=== PATIENT | female | born 1955 | race African-American/Black ===

== ENCOUNTER 2021-10-19 11:15 | Outpatient (CLI) | payer OTHER, SELFPAY ==
--- NOTE | ~2021-10-19 | US_ITS ---
EXAMINATION: US venous doppler LE RT DATE: 10/19/2021 12:02 INDICATION: Right lower limb pain and swelling. TECHNIQUE: Grayscale ultrasound images without and with compression and Doppler ultrasound images of the right lower extremity veins were obtained. COMPARISON: None. FINDINGS: The visualized portions of right common femoral vein, profunda (deep) femoral vein, femoral vein, pop liteal vein, peroneal veins, posterior tibial veins, and greater saphenous vein outflow are patent. IMPRESSION: 1. No deep venous thrombosis. Reviewed, dictated and finalized at location A.
== END 2021-10-19 11:16 | disposition home or self-care (01) ==
PROVIDERS: PCP Internal Medicine; Visit Provider Podiatrist Foot & Ankle Surgery
DX: R22.41 Localized swelling, mass and lump, right lower limb (principal)
CPT/HCPCS: 93971

== ENCOUNTER 2021-11-08 12:41 | Emergency (ER) | payer OTHER, SELFPAY ==
--- NOTE | ~2021-11-08 | US_ITS ---
EXAMINATION: US pelvic complete DATE: 11/08/2021 16:51 INDICATION: Abnormal uterine bleeding TECHNIQUE: Multiple transabdominal sonographic images of the pelvis were obtained. COMPARISON: None. FINDINGS: The uterus measures 11.4 x 6.0 x 4.7 cm. The endometrial complex measures 17 mm in thickness. The bi lateral ovaries are not visualized. There is no free fluid in the pelvis. IMPRESSION: 1. Endometrial complex is markedly thickened at 17 mm for postmenopausal state which raises concern f or either endometrial hyperplasia or malignancy. Recommend hysteroscopy for further evaluation. Reviewed, dictated and finalized at location A. IMPRESSION: 1. Endometrial complex is markedly thickened at 17 mm for postmenopausal state which raises concern for either endometrial hyperplasia or malignancy. Recommen d hysteroscopy for further evaluation.
[2021-11-08 13:04] VITALS: BP 159/112; PULSE 80; RESP 16; TEMP 36.8; O2SAT 100
--- NOTE | 2021-11-08 16:11 | ED.FEMALEGU ---
HPI - Female Genitourinary General Chief complaint: Vaginal Bleeding Stated complaint: lower abd cramps and vag bleeding Time Seen by Provider: 11/08/21 16:02 History of Present Illness HPI Narrative: Patient is a 66-year-old G3, P3 female here for evaluation of vaginal bleeding. Patient states that she has not bled through about 2 menstrual pads per day over the past week. She went into menopause about 15 years ago and has not bled since. She did have a cervical biopsy at the beginning of June for abnormal cells seen on her Pap, which reportedly came back negative. She did have spotting ever since that procedure, but notes that her bleeding has increased in severity over the past week. She also notes a lower abdominal cramping that she describes as a menstrual cramp. Denies fevers, chills, dysuria, urgency, frequency. She follows with an OB at [facility] but she is no longer in practice. Related Data Home Medications Medication Instructions Recorded Confirmed aspirin 81 mg tablet,delayed 81 mg PO DAILY 11/27/20 06/07/21 release cholecalciferol (vitamin D3) 1,250 1,250 mcg PO WEEKLY 11/27/20 06/07/21 mcg (50,000 unit) capsule multivit with 1 tablet PO DAILY 11/27/20 06/07/21 rrwomnvw-brpt-BX-lutein 8 mg iron-400 mcg-300 mcg tablet (Centrum Silver Women) Allergies Allergy/AdvReac Type Severity Reaction Status Date / Time No Known Allergies Allergy Verified 06/07/21 10:54 Review of Systems Review of Systems: Gen: Denies fevers or chills Eyes: Denies eye pain or visual change ENT: Denies congestion Respiratory: Denies shortness of breath or cough CV: Denies chest pain or palpitations GI: Denies abdominal pain nausea, emesis or diarrhea : denies burning, urgency, frequency or hematuria Musculoskeletal: Denies back pain or muscle pain Neuro: Denies numbness, tingling, weakness or focal weakness Skin: Denies rash Except as documented, all other systems reviewed and negative [facility] Past Medical History Medical History Hypertension Family History Family History Mother Hypertension Social History Social History Second hand tobacco smoke exposure: Yes Alcohol intake: never Substance use: never Exam Narrative: APPEARANCE: Well appearing, no pain in distress, well-nourished. Head: Normocephalic and atraumatic. EYES: PERRLA/EOMI, conjunctivae clear NOSE: No nasal drainage EARS: External ear normal in appearance THROAT: Oropharynx is clear. Mucous membranes are moist. NECK: Supple. No adenopathy, no masses. RESPIRATORY: Airway patent, respirations nonlabored. Clear to auscultation bilaterally, no rales, rhonchi, wheezing. CARDIOVASCULAR: Regular rate and rhythm without murmurs, rubs, or gallops. ABDOMINAL: Normoactive bowel sounds. Soft, nontender, nondistended. No rebound tenderness or guarding. : exam performed with pillowcase turner khari, scant amount of blood noted in vault, no brisk bleeding, no retained FB/polyp MUSCULOSKELETAL: Extremities are warm and well-perfused. Moves all extremities well. No edema. NEURO: Normal speech. No focal neurologic deficits. SKIN: Skin is warm and dry. No rashes. PSYCHIATRIC: Normal affect/mood. Course Consultations Consultation #1: Spoke with Dr. Nguyen, [facility], will see in office this following week for follow-up and possibly biopsy Date: 11/08/21 Time: 18:37 Vital Signs Vital signs: Vital Signs Temperature 98.2 F 11/08/21 13:04 Pulse Rate 80 11/08/21 13:04 Respiratory Rate 16 11/08/21 13:04 Blood Pressure 159/112 H 11/08/21 13:04 Pulse Oximetry 100 11/08/21 13:04 Oxygen Delivery Autopap 11/08/21 13:04 Temperature 98.2 F 11/08/21 13:04 Pulse Rate 80 11/08/21 13:04 Respiratory Rate 16 11/08/21 13:04 Blood Pressure 159/112 H
[2021-11-08] MEDS: IBUPROFEN 600 MG TABLET PO (16:50)
[2021-11-08 17:03] LABS: Basophils Percent Auto 0.5 % (0.2-1.2); Eosinophils Absolute Auto 0.2 K/mm3 (0-0.3); Hematocrit 44.4 % (37.0-47.0); Hemoglobin 14.6 g/dL (12.0-15.0); Immature Granulocyte Absolute 0.01 K/mm3 (0.00-0.031); Immature Granulocyte Percent A 0.1 % (0-0.5); Lymphocytes Absolute Auto 3.05 K/mm3 (0.9-3.2); Lymphocytes Percent Auto 40.1 % (18.3-44.2); Mean Corpuscular HGB Conc 32.9 g/dl (32-36); Mean Corpuscular Hemoglobin 31.9 pg (26-34); Mean Corpuscular Volume 97.2 fl (80-100); Mean Platelet Volume 9.3 fl (7.4-10.4); Monocytes Absolute Auto 0.5 K/mm3 (0.1-0.6); Monocytes Percent Auto 6.3 % (2.6-8.5); Neutrophils Absolute Auto 3.9 K/mm3 (1.3-6.7); Platelet Count Result 277 k/mm3 (150-375); Red Blood Count 4.57 M/mm3 (4.2-5.4); Red Cell Distribution Width 14.1 % (11.5-14.5); White Blood Count 7.6 K/mm3 (4.5-10.0)
[2021-11-08 17:14] LABS: Alanine Aminotransferase 33 U/L (6-35); Albumin Level 4.4 g/dL (3.5-5.1); Alkaline Phosphatase 96 U/L (38-126); Anion Gap 11 mmol/L (8-16); Aspartate Amino Transferase 36 U/L (14-36); Bilirubin,Total 0.5 mg/dL (0.2-1.3); Blood Urea Nitrogen 9 mg/dL (7-17); Calcium 9.4 mg/dL (8.4-10.2); Carbon Dioxide 28 mmol/L (22-30); Chloride 103 mmol/L (98-107); Estimated CRCL calculation 62 ml/min; Estimated Glomerular Filt Rate > 60; Glucose 93 mg/dL (65-110); Potassium 3.9 mmol/L (3.4-5.0); Sodium 142 mmol/L (137-145)
[2021-11-08 17:17] LABS: Prothrombin Time 13.2 Seconds (11.1-14.7)
[2021-11-08 17:18] LABS: Partial Thromboplastin Time 28.7 SECONDS (22.3-36.8)
== END 2021-11-08 19:10 | disposition home or self-care (01) ==
PROVIDERS: Physician Assistant; Emergency Provider Emergency Medicine; PCP Internal Medicine
DX: N93.8 Other specified abnormal uterine and vaginal bleeding (principal); I10 Essential (primary) hypertension; Z79.82 Long term (current) use of aspirin
CPT/HCPCS: 36415; 76856; 80053; 81025; 85025; 85610; 85730; 99284; A9270

== ENCOUNTER → 2022-06-21 15:48 | Outpatient (CLI) | payer OTHER, SELFPAY ==
--- NOTE | ~2022-06-21 | MR_ITS ---
EXAMINATION: MR knee RT wo con DATE: 06/21/2022 16:26 INDICATION: Right knee pain TECHNIQUE: Magnetic resonance imaging (MRI) of the right knee was performed without intravenous contr ast. Sequences included coronal PD-weighted FSE, coronal PD-weighted FS FSE, sagittal T2-weighted FS E, sagittal PD-weighted FS FSE and axial PD weighted fat saturated FSE. COMPARISON: None. FINDINGS: Medial compartment: Medial meniscus is normal. There is a band of deep chondral ulceration/fissuring without degenerative subchondral changes measuring 1.5 cm AP and up to 5 mm medial to lateral which extends along the ant erior to central weightbearing medial femoral condyle. Normal cartilage along the medial tibial plate au. Small to moderate size marginal osteophytes are present. Lateral compartment: Complex tear with linear increased signal extending to the intra-articular surface and free edge of t he posterior horn of the lateral meniscus and extending across the meniscus near the posterior root. Additional more amorphous increased signal at the inner third of the body of the lateral meniscus. De ep chondral fissuring at the anterior to central weightbearing lateral femoral condyle with underlyin g very small central subchondral osteophyte. There is additional deep fissuring without degenerative subchondral changes at the central aspect of the lateral tibial plateau. Small to moderate size gloria nal osteophytes are present. Patellofemoral compartment: Extensive deep chondral ulceration at the lateral patellar facet with suggestion of remodeling of the articular cortex and with small amount of edema-like signal change along side the apical ridge. Juan tional deep chondral ulceration with some early remodeling of the articular cortex at the lateral erika e of the lateral patellar facet. Fissuring at the trochlear groove and medial trochlea. Large multipl e osteophyte along the lateral side of the lateral patellar facet with additional small to moderate s ize marginal osteophytes along the trochlea and medial patellar facet. Ligaments and tendons: Anterior and posterior cruciate ligaments are normal. The fibular collateral ligament complex is norm al. There is mild thickening of the proximal medial collateral ligament likely mild scarring related to chronic sprain with no surrounding edema to suggest acute injury. The patella tendon is normal. Mi ld distal quadriceps tendinopathy without tear. The visualized medial and lateral hamstring tendons a s well as the iliotibial band are normal. Fluid: Minimal joint effusion at the suprapatellar pouch. No loose osteochondral bodies identified. Osseous/other: Bone alignment is normal. No fracture or pathologic marrow replacing process. IMPRESSION: 1. Complex lateral meniscal tear. 2. 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 3. Mild distal quadriceps tendinopathy without tear. 4. Suggestion mild scarring related to chronic sprain of the medial collateral ligament. Reviewed, dictated and finalized at location A. IMPRESSION: 1. Complex lateral meniscal tear. 2. Tricompartmental osteoarthritis, moderate to severe with high-grade chondrom alacia at the lateral side of the patellofemoral compartment and mild with mode rate and high-grade chondral malacia in the lateral compartment and moderate gr chrissy chondral malacia in the medial compartment. 3. Mild distal quadriceps tendinopathy without tear. 4. Suggestion mild scarring related to chronic sprain of the medial collateral ligament.
== END ==
PROVIDERS: Visit Provider Nurse Practitioner Family
DX: S83.281A Other tear of lateral meniscus, current injury, right knee, initial encounter (principal); M17.11 Unilateral primary osteoarthritis, right knee; M94.261 Chondromalacia, right knee; X58.XXXA Exposure to other specified factors, initial encounter
CPT/HCPCS: 73721

== ENCOUNTER 2022-08-01 11:30 | Outpatient (CLI) | payer OTHER, MEDICARE, SELFPAY ==
--- NOTE | ~2022-08-01 | DEXA_ITS ---
Bone Density Report Name: KWAME ENGEL Age: 66 Sex: Female Ethnicity: Black Date of : 1955 Indication: postmenopausal; screening for osteoporosis; cancer; Referring Provider: TIFFANIE ATKINSON Study: Bone densitometry was performed. Exam Date: August 01, 2022 Accession number: [id number] Bone Density: Region BMD T-score Z-score Classification AP Spine(L1-L4) 1.233 1.7 2.8 Normal Femoral Neck (Left) 1.087 2.1 2.3 Normal Total Hip (Left) 1.277 2.7 2.6 Normal Femoral Neck (Right) 1.090 2.2 2.3 Normal Total Hip (Right) 1.215 2.2 2.2 Normal Total Hip Mean 1.246 2.5 2.4 Normal World Health Organization criteria for BMD impression classify patients as: Normal (T-score at or above -1.0), Osteopenia (T-score between -1.0 and -2.5), or Osteoporosis (T-score at or below -2.5). 10-year Fracture Risk: FRAX not reported because: All T-scores for Spine Total, Hip Total, Femoral Neck at or above -1.0 Clinical Information Provided by Patient: Has the following medical conditions: Cancer Patient maximum height was 60 Menopause Age: 65 Onset of menses at age 13 Number of children 3 Impression: The patient has normal bone mass. Discussion: LOW RISK OF FRACTURE; BONE DENSITY IS WELL ABOVE THE MINIMUM DESIRABLE LEVEL AND ABOVE AVERAGE FOR AGE AND SEX AT ALL SKELETAL SITES TESTED. This person's bone density is above expected limits for age and sex. This is rarely clinically significant, but should be pursued if there are significant musculoskeletal complaints. The patient should follow a healthful lifestyle (good nutrition with adequate calcium and vitamin D, and appropriate weight-bearing exercise). Follow-Up: Consider repeating this study in 5 years or sooner if there is some new clinical indication. Reported by: [facility] on 08/01/2022 11:59:00 AM. Reviewed, dictated and finalized at location AAlexia HAMLIN
== END 2022-08-01 11:31 | disposition home or self-care (01) ==
PROVIDERS: PCP Family Medicine; Visit Provider Family Medicine
DX: Z78.0 Asymptomatic menopausal state (principal)
CPT/HCPCS: 77080

== ENCOUNTER 2023-06-18 10:30 | Outpatient (CLI) | payer MEDICARE, OTHER, SELFPAY ==
[2023-06-18 11:20] LABS: Hematocrit 43.7 % (37.0-47.0); Hemoglobin 14.4 g/dL (12.0-15.0); Mean Corpuscular Hemoglobin 31.3 pg (26-34); Mean Platelet Volume 9.7 fl (7.4-10.4); Platelet Count Result 276 k/mm3 (150-375); Red Cell Distribution Width 14.5 % (11.5-14.5); White Blood Count 4.2 K/mm3 (4.5-10.0)
[2023-06-18 11:33] LABS: Alanine Aminotransferase 36 U/L (6-35); Albumin Level 4.2 g/dL (3.5-5.1); Alkaline Phosphatase 89 U/L (38-126); Anion Gap 5 mmol/L (4-12); Aspartate Amino Transferase 32 U/L (14-36); Bilirubin,Total 0.6 mg/dL (0.2-1.3); Blood Urea Nitrogen 12 mg/dL (7-17); Calcium 9.4 mg/dL (8.4-10.2); Carbon Dioxide 31 mmol/L (22-30); Chloride 107 mmol/L (98-107); Cholesterol 158 mg/dL (0-200); Estimated Glomerular Filt Rate > 60; Glucose 107 mg/dL (65-110); HDL Direct 49 mg/dL; Potassium 3.6 mmol/L (3.4-5.0); Sodium 143 mmol/L (137-145); Triglycerides 68 mg/dL (<150)
[2023-06-18 11:44] LABS: LDL Cholesterol Direct 78 mg/dL
[2023-06-18 12:26] LABS: Vitamin D 25 Hydroxy 31.7 ng/mL
== END 2023-06-18 10:31 | disposition home or self-care (01) ==
LOC: ANHLAB 10:39
PROVIDERS: PCP Family Medicine; Visit Provider Family Medicine
DX: E55.9 Vitamin D deficiency, unspecified (principal); E78.5 Hyperlipidemia, unspecified; I10 Essential (primary) hypertension; I87.2 Venous insufficiency (chronic) (peripheral); E66.01 Morbid (severe) obesity due to excess calories; Z85.3 Personal history of malignant neoplasm of breast
CPT/HCPCS: 36415; 80053; 80061; 82306; 85027

== ENCOUNTER 2023-12-25 08:38 | Outpatient (CLI) | payer MEDICARE, OTHER, SELFPAY ==
[2023-12-25 09:12] LABS: Hemoglobin 15.9 g/dL (12.0-15.0); Mean Corpuscular HGB Conc 33.8 g/dl (32-36); Mean Corpuscular Hemoglobin 32.8 pg (26-34); Mean Corpuscular Volume 96.9 fl (80-100); Mean Platelet Volume 9.5 fl (7.4-10.4); Platelet Count Result 257 k/mm3 (150-375); Red Blood Count 4.85 M/mm3 (4.2-5.4); Red Cell Distribution Width 14.6 % (11.5-14.5); White Blood Count 4.4 K/mm3 (4.5-10.0)
[2023-12-25 09:25] LABS: Alanine Aminotransferase 51 U/L (6-35); Albumin Level 4.4 g/dL (3.5-5.1); Alkaline Phosphatase 98 U/L (38-126); Anion Gap 6 mmol/L (4-12); Aspartate Amino Transferase 43 U/L (14-36); Bilirubin,Total 0.7 mg/dL (0.2-1.3); Blood Urea Nitrogen 12 mg/dL (7-17); Calcium 9.4 mg/dL (8.4-10.2); Carbon Dioxide 32 mmol/L (22-30); Chloride 103 mmol/L (98-107); Cholesterol 168 mg/dL (0-200); Estimated Glomerular Filt Rate 60; Glucose 109 mg/dL (65-110); HDL Direct 49 mg/dL; Potassium 3.8 mmol/L (3.4-5.0); Sodium 141 mmol/L (137-145); Triglycerides 74 mg/dL (<150)
[2023-12-25 09:36] LABS: LDL Cholesterol Direct 70 mg/dL
== END 2023-12-25 08:39 | disposition home or self-care (01) ==
PROVIDERS: PCP Family Medicine; Visit Provider Family Medicine
DX: Z00.00 Encounter for general adult medical examination without abnormal findings (principal); E55.9 Vitamin D deficiency, unspecified; E78.5 Hyperlipidemia, unspecified; I10 Essential (primary) hypertension; I87.2 Venous insufficiency (chronic) (peripheral); E66.01 Morbid (severe) obesity due to excess calories; Z85.3 Personal history of malignant neoplasm of breast
CPT/HCPCS: 36415; 80053; 80061; 82306; 85027

== ENCOUNTER 2024-01-08 09:53 | Outpatient (CLI) | payer MEDICARE, OTHER, SELFPAY ==
--- NOTE | ~2024-01-08 | US_ITS ---
Limited ABDOMINAL ULTRASOUND Ordering provider: Amos Chatterjee MD History: . R74.8 - Abnormal levels of other serum enzymes . Comparison: None. FINDINGS: LIVER: Normal size and echotexture. No focal hepatic lesions or perihepatic fluid collections are monae ntified. Normal flow of the portal vein. GALLBLADDER: Unremarkable. No evidence for stones, sludge, gallbladder wall thickening or pericholecy stic fluid collections. The wall thickness is 1.2 mm. A negative sonographic Solorzano's sign was noted. BILIARY DUCTS: No evidence for intra or extrahepatic biliary dilation. Common bile duct measures 5.4 mm in diameter which is within normal limits. PANCREAS: Normal echotexture and size. UPPER ABDOMINAL AORTA: Normal in caliber. IVC: Patent. FREE FLUID: None. IMPRESSION: Unremarkable limited ultrasound of the abdomen. Reviewed, dictated and finalized at location A.
[2024-01-08 12:36] LABS: Hepatitis B Surface Antigen Negative (Negative)
[2024-01-08 12:41] LABS: HAV RESULT Negative (Negative); Hepatitis B Core IgM Result Negative (Negative)
[2024-01-08 12:53] LABS: Hepatitis C Virus Antibody Negative (Negative)
== END 2024-01-08 09:54 | disposition home or self-care (01) ==
PROVIDERS: PCP Family Medicine; Visit Provider Family Medicine
DX: R74.01 Elevation of levels of liver transaminase levels (principal); R74.8 Abnormal levels of other serum enzymes
CPT/HCPCS: 36415; 76705; 80074

== ENCOUNTER 2025-01-06 10:16 | Outpatient (CLI) | payer MEDICARE, SELFPAY ==
--- OUTSIDE RECORDS SUMMARY | 2025-01-06 11:18 | XMS_ITS | Clinical Summary ---
Author Organization [facility] Address [address] [place] [id number] Care Team Providers Care Improvement Spec Name Role Phone Unavailable Primary Care Provider Unavailabl e Social History Tobacco Use Types Packs/Day Years Used Date Smoking Tobacco: Never Assessed Comments Unknown Sex and Gender Information Value Date Recorded Sex Assigned at Not on file Legal Sex Female 4:27 PM CDT Gender Identity Not on file Sexual Orientation Not on file Plan of Treatment Health Maintenance Due Date Last Done Comments Colorectal Cancer Screening Colonoscopy (10 Years) 1955 Hepatitis C 1974 DTaP, Tdap and Td Vaccines (1 - Tdap) 08/06/1975 Pneumococcal Vaccine: 50+ Years (1 of 1 - PCV) 2006 Zoster Vaccines (2 of 3) 05/02/2017 017, 12/05/2016, 08/22/2016, Additional history exists Dexa Scan (General) 2021 COVID-19 Vaccine (2 - season) 2024 06/07/2020 Mammogram Screening 11/04/2026 11/04/2024 RSV Immunization or 60+ Years (1 - 1-dose 75+ series) 08/06/2031 Influenza Adult Completed 12/17/2024, 11/08, 12/15/2019, Additional history exists Hepatitis A Vaccines Aged Out No long er eligible based on patient's age to complete this topic Meningococcal B Vaccine Aged Out No l onger eligible based on patient's age to complete this topic Meningococcal Vaccine Aged Out No [place] angela eligible based on patient's age to complete this topic RSV Immunizations Under 20 Months Aged Out No longer eligible based on patient's age to complete this topic
--- OUTSIDE RECORDS SUMMARY | 2025-01-06 11:18 | XMS_ITS | Patient Health Record ---
Author Organization [facility] Address [address] [place], [place] [id number] Care Team Providers Care Shop Hand Name Role Phone ARIC MCCORMICK Unavailable [phone] Reason For Referral No Information Social History Social History Additional Details Category Social Info Options Details Migrated Social History Migrated Social History Smoking Status : Never used tobacco , History of tobacco use : Plan Of Treatment No Information Insurance Providers Payer Name Payer Address Payer Phone Subscriber Number Group Number Insured Name Patient Relationship to Insured Coverage Start Date Coverage End Date [employer] [address] [place], [place] [phone] [id number] KWAME ENGEL Self - patient is the insured
--- OUTSIDE RECORDS SUMMARY | 2025-01-06 11:19 | XMS_ITS | Clinical Summary ---
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 Gender Identity Not on file Sexual Orientation Not on file Plan of Treatment Health Maintenance Due Date Last Done Comments Hepatitis C Virus (HCV) Screening 1955 TdaP Immunization 1955 Cologuard 2001 Colonoscopy 2001 Colorectal Cancer Screening 2001 Immunochemical Fecal Occult Blood 2001 Pneumococcal Immunization (5 0+ years) (1 of 1 - PCV) 2006 Zoster Immunization (1 of 2) 2006 Influenza Immunization (#1) 2024 12/15/2019 SARS-COV-2 Immunization (1 - season) 2024 Respiratory Syncytial Virus (RSV) Immunization (Adult) (1 - 1-dose 75+ series) 08/06/2031 Hepatitis B Immunization Aged Out No longer eligible based on patient's age to complete this topic Human Papillomavirus (HPV) Immunization Aged Out No longer eligible b ased on patient's age to complete this topic Meningococcal Immunization (ACWY) Aged Out No longer eligible based on patient's age to complete this topic Rotavirus Immunization Aged Out No lo nger eligible based on patient's age to complete this topic
--- OUTSIDE RECORDS SUMMARY | 2025-01-06 11:19 | XMS_ITS | Clinical Summary ---
Author Organization [facility] Address [address] [place] [address] Care Team Providers Care Automatic Lathe Operator Name Role Phone Iker Michelle MD Unavailable [phone] Isael Corona MD Unavailable [phone] Amos Chatterjee MD Primary Care Provider [phone] Gladys Harrison NP Unavailable [phone] More Reyes MD Unavailable [phone] Allergies No known active allergies Medications amlodipine-ator vastatin (CADUET) 5-10 mg per tablet Take 1 tablet by mouth daily PATIENT STATED SHE WAS NO LONGER TAKING THIS MEDICATION BUT APON LOOKING AT THE BOTTLE REALIZED SHE IS STILL TAKING THIS MEDICATION Active metoprolol XL (TOPROL-XL) 50 mg 24 hr tablet metoprolol succinate ER 50 mg tablet,extended release 24 hr TAKE 1 TABLET EVERY DAY Active losartan (COZAAR) 100 mg tablet Take 1 tablet (100 mg total) by mouth daily 0 Active folic acid/multivit-m in/lutein (CENTRUM SILVER ORAL) Take 1 tablet by mouth daily Active ergocalciferol (VITAMIN D) 50,000 unit capsuleIndicati ons:Vitamin D deficiency Take 1 capsule (50,000 Units total) by mouth once a week 12 capsule 3 5 04/02/19 26 Active Active Problems Problem Noted Date Diagnosed Date Malignant neoplasm of upper- outer quadrant of right breast in female, estrogen receptor negative 07/18/2017 Cancer Staging:Clinical stage from 09/04/2017:Stage IIB(cT1b, cN1(sn), cM0, G3, ER: Negative, NC: Negative, HER2: Negative) - Signed by Wes Baez DO on 09/04/2017 Encounters Date Type Department Care Team Description 12/20/2024 Results Follow-Up Health system Medicine Physicians [facility] Oncology [address] [place] [address] [address] [place] [address] Shireen Eller, CUCO Vitamin D 25 hydroxy, Comprehensive metabolic panel, CBC with auto differential, Additional followed-up results: 3 12/17/2024 11:30 AM CDT Office Visit Health system Medicine Physicians [facility] On[facility] [address] [place] [address] [address] [place] [address] Gladys Harrison, CASSIA Malignant neoplasm of upper-outer quadrant of right breast in female, estrogen receptor negative (HCC) (Primary Dx); Encounter for screening mammogram for breast cancer; Vitamin D deficiency; Malignant neoplasm of upper-outer quadrant of left breast in female, estrogen receptor positive (HCC); Triple negative breast cancer (HCC); Screening mammogram for breast cancer; Need for immunization against influenza 12/17/2024 10:20 AM CDT [facility] at [address] [id number] Vitamin D deficiency; Malignant neoplasm of upper-outer quadrant of left breast in female, estrogen receptor positive (HCC); Malignant neoplasm of upper-outer quadrant of right breast in female, estrogen receptor negative (HCC) 11/04/2024 12:40 PM CDT - 11/04/2024 11:59 PM CDT Hospital Encounter [facility] Medical Office Bl 1 Breast [facility] [address] [facility] [address] [place], [place] [id number] Screening mammogram, encounter for Discharge Disposition: Discharge to home or self care 11/04/2024 Results Follow-Up Health system Medicine Physicians [facility] On[facility] [address] [place] [address] [address] [place] [address] Cristel Dominguez RN Screening Mammogram Bilateral W Federico from Last 3 Months Immunizations Immunization Administration Dates Next Due Influenza, Trivalent, Preser vative Free, Intramuscular 12/17/2024 Influenza, Unspecified 11/23/2020,2019,01/08/2018,03/07,03/01/2016 Pfizer SARS-CoV-2 Monovalent Vaccination (12+ Yrs) PURPLE 06/07/2020 ZOSTER LIVE 03/07/2017, 7,08/22/2016,06/27,05/30/2016,05/16/2016,04/18/2016 ,03/28/2016,03/01/2016 Surgical History Surgery Date Site/Laterality Comments COLONOSCOPY BREAST BIOPSY BREAST BIOPSY 02/21/2016 Right BREAST LUMPECTOMY 03/10/2015 - 03/09/2016 Right SECTION 1976. 1988. 1980. TUBAL LIGATION Medical History Medical History Date Comments Breast cancer (HCC) History of radiation therapy 2015 History of chemotherapy 2015 PONV (postoperative nausea and vomiting) Motion sickness Hypertension High cholesterol Post-menopausal bleeding Social History Tobacco Use Types Packs/Day Years Used Date Smoking Tobacco: Never Smokeless Tobacco: Never Alcohol Use Standard Drinks/Week Comments Never 0 (1 standard drink = 0.6 oz pur e alcohol) AUDIT-C Answer Date Recorded Q1: How often do you have a drink containing alcohol? Never 12/17/2024 Q2: How many drinks containi ng alcohol do you have on a typical day when you are drinking? Patient does not drink Q3: How often do you have si x or more drinks on one occasion? 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 Gender Identity Not on file Sexual Orientation Not on file Obstetrics History Para Term AB IAB SAB Ectopic Multiple Livin g Live Births 3 3 3 Date Outcome GA Total Labor Labor/2nd/3rd Weight Sex Type Anes PTL Lucie A1 A5 Name Clin Term Term Term Last Filed Vital Signs Vital Sign Reading Time Taken Comments Blood Pressure 142/77 12/17/2024 10:30 AM CDT Pulse 81 12/17/2024 10:30 AM CDT Temperature 36.9 C (98.4 F) 12/17/2024 10:30 AM CDT Respiratory Rate 18 12/17/2024 10:30 AM CDT Oxygen Saturation 97% 12/17/2024 10:30 AM CDT Inhaled Oxygen Concentration - - Weight 102.4 kg (225 lb 12 oz) 12/17/2024 10:30 AM CDT no shoes Height 152 cm (4' 11.84) 12/17/2024 10:30 AM CD T no shoes Body Mass Index 44.32 12/17/2024 10:30 AM CDT Plan of Treatment Health Maintenance Due Date Last Done Comments Depression Screening 1955 Fall Risk Assessment 1955 Hepatitis C Screening 1955 Osteoporosis Screening-Bone Density Scan 1955 DTaP/Tdap/Td Vaccine (1 - Tdap) 08/06/1967 Hepatitis B Screening 1974 Pneumococcal vaccine 65+ (1 of 1 - PCV) 2006 Zoster Vaccine (2 of 3) 05/02/2017 03/07/20 17, 12/05/2016, 08/22/2016, Additional history exists Well Visit 65+ 2021 Covid-19 Vaccine (2 - 2024-2 6 season) 2024 06/07/2020 Breast Cancer Screening-Mammogram 11/04/2025 11/04/2024, 10/09/2023, 10/03/2022, Additional history exists Colon Cancer Screening-Colonoscopy 06/13/2027 06/12/2017 Colon Cancer Screening-CT Colonography Discontinued 06/12/2017 Colon Cancer Screening-DNA Stool Discontinued 06/13/19 18 Colon Cancer Screening-FIT Discontinued 06/12/2017 Colon Cancer Screening-Sigmoidoscopy Discontinued 06/12/2017 Influenza Vaccine Completed 12/17/2024, , 12/15/2019, Additional history exists Procedures Procedure Name Priority Date/Time Associated Diagnosis Comments CANCER ANTIGEN 15-3 Routine 12/17/2024 1 0:21 AM CDT Malignant neoplasm of upper-outer quadrant of right breast in female, estrogen receptor negative (HCC) EGFR Routine 12/17/2024 10:21 AM CDT Vitamin D deficiency Malignant neoplasm of upper-outer quadrant of left breast in female, estrogen receptor positive (HCC) DIFFERENTIAL AUTO Routine 12/17/2024 10: 21 AM CDT Vitamin D deficiency Malignant neoplasm of upper-outer quadrant of left breast in female, estrogen receptor positive (HCC) CBC WITH AUTO DIFFERENTIAL Routine 12/17/2024 10:21 AM CDT Vitamin D deficiency Malignant neoplasm of upper-outer quadrant of left breast in female, estrogen receptor positive (HCC) COMPREHENSIVE METABOLIC PANEL Routine 12/17/2024 10:21 AM CDT Vitamin D deficiency Malignant neoplasm of upper-outer quadrant of left breast in female, estrogen receptor positive (HCC) VITAMIN D 25 HYDROXY Routine 12/17/2024 10:21 AM CDT Vitamin D deficiency Malignant neoplasm of upper-outer quadrant of left breast in female, estrogen receptor positive (HCC) SCREENING MAMMOGRAM BILATERAL W FEDERICO Schedule Routine, Read Routine (OP Routine) 11/04/2024 1:07 PM CDT Screening mammogram, encounter for COLONOSCOPY Routine 06/12/2017 8:29 AM CDT from Last 3 Months or Most Recently Relevant to Health Maintenance Results * eGFR (12/17/2024 10:21 AM CDT) eGFR 61 >=60 mL/min/1. 73 m2 Comment: Interpretive Data Reference Interval Normal >/= 90 mL/min/1.73m2 Mildly decreased* 60 - 89 mL/min/1.73m2 Mildly to moderately decreased 45 - 59 mL/min/1.73m2 Moderately to severely decreased 30 - 44 mL/min/1.73m2 Severely decreased 15 - 29 mL/min/1.73m2 Kidney Failure < 15 mL/min/1.73m2 *Relative to young adult level Estimated glomerular filtration rate is determined by the 2020 CKD-EPI equation recommended by the National Kidney Foundation (A Unifying Approach to GFR Estimation: Recommendations of the NKF-ASK Task Force on Reassessing the Inclusion of Race in Diagnosing Kidney Disease, JASN 2020). The CKD-EPI equation should not be used for patients with unstable renal function and has not been validated in children and those over 70. Current interpretive data was last reviewed 2021. Testing performed by: [address] [address] Blood 12/17/2024 10:2 1 AM CDT 12/17/2024 10:23 AM CDT Gladys Harrison RESEARCH LAB ASSISTANT LAB BLOOD ORDERABLES Final Result [facility] [address] [facility] Department [place] [address] * Differential, auto (12/17/2024 10:21 AM CDT) Neutrophil abs 2.50 1.50 - 6.50 K/cumm Comment:Testing performed by : [address] [address] Imm gran abs 0.05 0.00 - 0.10 K/cumm AKASH Comment:Testing performed by : [address] [address] Lymphocyte abs 2.38 0.80 - 3.30 K/cumm AKASH Comment:Testing performed by : [address] [address] Monocyte abs 0.37 0.20 - 0.80 K/cumm AKASH Comment:Testing performed by : [address] [address] Eosinophil abs 0.12 0.00 - 0.50 K/cumm AKASH Comment:Testing performed by : [address] [address] Basophil abs 0.04 0.00 - 0.10 K/cumm AKASH Comment:Testing performed by : [address] [address] Neutrophil pct 45.8 % AKASH Comment: Interpretive Data Percent cell count reference ranges are not reported, since discordance with absolute values may lead to misinterpretation of CBC data. Current Interpretive Data was last revised on 2017. Testing performed by: [address] [address] Imm gran pct 0.9 % [facility] Comment: Interpretive Data Percent cell count reference ranges are not reported, since discordance with absolute values may lead to misinterpretation of CBC data. Current Interpretive Data was last revised on 2017. Testing performed by: [address] [address] Lymphocyte pct 43.6 % [facility] Comment: Interpretive Data Percent cell count reference ranges are not reported, since discordance with absolute values may lead to misinterpretation of CBC data. Current Interpretive Data was last revised on 2017. Testing performed by: [address] [address] Monocyte pct 6.8 % [facility] Comment: Interpretive Data Percent cell count reference ranges are not reported, since discordance with absolute values may lead to misinterpretation of CBC data. Current Interpretive Data was last revised on 2017. Testing performed by: [address] [address] Eosinophil pct 2.2 % [facility] Comment: Interpretive Data Percent cell count reference ranges are not reported, since discordance with absolute values may lead to misinterpretation of CBC data. Current Interpretive Data was last revised on 2017. Testing performed by: [address] [address] Basophil pct 0.7 % [facility] Comment: Interpretive Data Percent cell count reference ranges are not reported, since discordance with absolute values may lead to misinterpretation of CBC data. Current Interpretive Data was last revised on 2017. Testing performed by: [address] [address] Blood 12/17/2024 10:2 1 AM CDT 12/17/2024 10:23 AM CDT Gladys Harrison RESEARCH LAB ASSISTANT LAB BLOOD ORDERABLES Final Result [facility] [address] [facility] Department [place] [address] * CBC with auto differential (12/17/2024 10:21 AM CDT) [facility] WBC 5.46 3.80 - 9.90 K/cumm Comment:Testing performed by : [address], [address] Hgb 14.1 11.9 - 15.5 g/dL AKASH Comment:Testing performed by : [address], [address] Hct 41.5 35.6 - 45.5 % AKASH Comment:Testing performed by : [address], [address] Plt 262 150 - 400 K/cumm AKASH Comment:Testing performed by : [address], [address] MPV 9.2 9.1 - 12.3 fL AKASH Comment:Testing performed by : [address], [address] RBC 4.53 3.90 - 5.20 M/cumm AKASH Comment:Testing performed by : [address], [address] MCV 91.6 81.3 - 96.4 fL AKASH Comment:Testing performed by : [address], [address] MCH 31.1 27.1 - 33.3 pg AKASH Comment:Testing performed by : [address], [address] MCHC 34.0 32.3 - 35.7 g/dL AKASH Comment:Testing performed by : [address], [address] RDW CV 14.0 11.1 - 14.9 % AKASH Comment:Testing performed by : [address], [address] RDW SD 47.8 35.7 - 48.1 fL AKASH Comment:Testing performed by : [address], [address] NRBC abs 0.00 0.00 - 0.01 K/cumm AKASH Comment:Testing performed by : [address], [address] ANC Prelim 2.50 1.50 - 6.50 K/cumm [facility] Comment: Interpretive Data The rapid ANC is a preliminary automated count and may vary from the final ANC (Neut Abs) reported in the WBC differential that follows. Current interpretive data was last revised 2024. Testing performed by: [address] [address] Blood 12/17/2024 10:2 1 AM CDT 12/17/2024 10:23 AM CDT Gladys Harrison NP LAB BLOOD ORDERABLES Final Result Performing Organization Address [facility] Co de Phone Number [facility] [address] [facility] [place] [address] * (ABNORMAL) Cancer antigen 15-3 (12/17/2024 10:21 AM CDT) Pathologist [facility] [place] 15-3 ag 31.1(H) 0.0 - 25.0 units/mL Comment: Interpretive Data The [employer] CA 15-3 assay procedure was used. Results from different manufacturers or methods may not be comparable. Serial testing should be performed using the same method. Testing performed by: [address] [address] Blood 12/17/2024 10:2 1 AM CDT 12/17/2024 11:25 AM CDT Gladys Harrison NP LAB BLOOD ORDERABLES Final Result Performing Organization Address City/[facility] Co de Phone Number [address] [place] [address] * Vitamin D 25 hydroxy (12/17/2024 10:21 AM CDT) [facility] Vitamin D 25-OH 57.0 30.0 - 80.0 ng/mL Blood 12/17/2024 10:2 1 AM CDT 12/17/2024 4:43 PM CDT Gladys Harrison RESEARCH LAB ASSISTANT LAB BLOOD ORDERABLES Final Result [facility] [address] [facility] Department [place] [address] * Comprehensive metabolic panel (12/17/2024 10:21 AM CDT) Sodium 143 135 - 145 mmol/L Comment:Testing performed by : [address] [address] Potassium, pl 3.9 3.3 - 4.9 mmol/L AKASH Comment:Testing performed by : [address] [address] Chloride 105 97 - 110 mmol/L AKASH Comment:Testing performed by : [address] [address] CO2 27 22 - 32 mmol/L AKASH Comment:Testing performed by : [address] [address] Anion gap 11 2 - 15 mmol/L AKASH Comment:Testing performed by : [address] [address] BUN 9 6 - 25 mg/dL AKASH Comment:Testing performed by : [address] [address] Creatinine 1.00 0.60 - 1.10 mg/dL AKASH Comment:Testing performed by : [address] [address] Glucose 110 70 - 199 mg/dL AKASH Comment: Interpretive Data Fasting glucose >/= 126 mg/dl is diagnostic for diabetes. Fasting is defined as no caloric intake for at least 8 hours. Fasting glucose between 100 mg/dl to 125 mg/dl is diagnostic of prediabetes. In a patient with classic symptoms of hyperglycemia or hyperglycemic crisis, a random glucose >/= 200 mg/dl is diagnostic for diabetes. In the absence of unequivocal hyperglycemia, results should be confirmed by repeat testing. The classification and Diagnosis of Diabetes Diabetes Care 202; 46: S19-S40. Current interpretive data was last revised 2022. Testing performed by: [address] [address] Calcium 9.2 8.5 - 10.3 mg/dL AKASH Comment:Testing performed by : [address] [address] Bilirubin, total 0.5 0.1 - 1.2 mg/dL AKASH Comment:Testing performed by : [address] [address] Protein, pl 7.6 6.5 - 8.5 g/dL AKASH Comment:Testing performed by : [address] [address] Albumin 4.0 3.5 - 5.0 g/dL AKASH Comment:Testing performed by : [address] [address] Alk phos 95 40 - 130 Units/L AKASH Comment:Testing performed by : [address] [address] ALT 31 7 - 45 Units/L AKASH Comment:Testing performed by : [address] [address] AST 26 10 - 45 Units/L AKASH Comment:Testing performed by : [address] [address] Blood 12/17/2024 10:2 1 AM CDT 12/17/2024 10:23 AM CDT Gladys Harrison NP LAB BLOOD ORDERABLES Final Result [facility] [address] [facility] Department [place] [address] * Screening Mammogram Bilateral W Federico (11/04/2024 1:07 PM CDT) Anatomical Region Laterality Modality Breast Bilateral Mammography Impressions 11/04/2024 1:17 PM CDT Bilateral No evidence of malignancy in either breast. OVERALL BI-RADS FINAL ASSESSMENT: 2 - Benign RECOMMENDATION: Recommend bilateral annual screening mammography. Narrative 11/04/2024 1:17 PM CDT EXAMINATION: Screening Mammogram Bilateral W Federico: 11/04/2024 COMPARISON: Relevant prior studies available at the time of interpretation were reviewed, including the most recent mammogram on: 10/09/2023. TECHNIQUE: Mammography was performed with 2D and 3D digital breast tomosynthesis (DBT) images. CAD was utilized. BREAST PARENCHYMAL COMPOSITION: There are scattered areas of fibroglandular density. FINDINGS: Bilateral There is no suspicious mass, calcification, or unexplained architectural distortion in either breast. Post-op changes from prior lumpectomy/partial mastectomy are seen on the right. us Self Screening Mammogram IMG MAMMO PROCEDURES Fi nal Result * Colonoscopy (06/12/2017 8:29 AM CDT) Anatomical Region Laterality Modality Other us Historical Provider ENDOSCOPY PROCEDURES Brigida l Result from Last 3 Months or Most Recently Relevant to Health Maintenance Insurance [employer] MEDICARE PPO [employer] CHOICE MEDICARE PPO [place] OPEN ACCESS Advance Directives For more information, please contact: [phone] Documents on File Type Date Recorded Patient Vibrating Screen Operator Expl anation ADVANCE DIRECTIVE 03/16/2016 12:00 AM POWER OF GUEST SERVICE MANAGER FINANCIAL/MEDICAL Care Teams Automatic Lathe Operator Relationship Specialty Start Date End Date Amos Chatterjee MD [address] [place] [address] PCP - General Family Practice 12/27/22 Iker Michelle MD [address] [place] [address] Referring Physician Surgery 08/28/17 Isael Corona MD [address] [place] [address] Referring Physician Radiation Oncology 08/28/17 Gladys Harrison NP [address] [place] [address] Nurse Practitioner Medical Oncology 12/31/23 More Reyes MD [address] [facility] [address] [place] [id number] Envelope Stamping Machine Operator Gastroenterology 01/05/24
[2025-01-06 11:32] LABS: Hematocrit 44.2 % (37.0-47.0); Hemoglobin 14.6 g/dL (12.0-15.0); Immature Granulocyte Percent A 0.2 % (0-0.5); Lymphocytes Absolute Auto 2.28 K/mm3 (0.9-3.2); Mean Corpuscular HGB Conc 33.0 g/dl (32-36); Mean Corpuscular Hemoglobin 31.5 pg (26-34); Mean Corpuscular Volume 95.5 fl (80-100); Nucleated Red Blood Cells Absolute Auto 0.000 K/mm3 (0.0-0.012); Nucleated Red Blood Cells Perc 0.0 % (0.0-0.2); Platelet Count Result 269 k/mm3 (150-375); Red Blood Count 4.63 M/mm3 (4.2-5.4); White Blood Count 4.6 K/mm3 (4.5-10.0)
[2025-01-06 11:57] LABS: Alanine Aminotransferase 40 U/L (6-35); Albumin Level 4.1 g/dL (3.5-5.1); Alkaline Phosphatase 96 U/L (38-126); Anion Gap 6 mmol/L (4-12); Aspartate Amino Transferase 38 U/L (14-36); Bilirubin,Total 0.5 mg/dL (0.2-1.3); Blood Urea Nitrogen 11 mg/dL (7-17); Calcium 9.1 mg/dL (8.4-10.2); Carbon Dioxide 30 mmol/L (22-30); Chloride 104 mmol/L (98-107); Estimated Glomerular Filt Rate 52; Glucose 101 mg/dL (65-110); Magnesium 2.4 mg/dL (1.6-2.3); Potassium 3.8 mmol/L (3.4-5.0); Sodium 140 mmol/L (137-145); Total Protein 7.6 g/dL (6.3-8.2)
[2025-01-06 12:50] LABS: Vitamin B12 968.0 pg/mL (239-931)
== END 2025-01-06 10:17 | disposition home or self-care (01) ==
LOC: ANHLAB 10:19
PROVIDERS: PCP Family Medicine; Visit Provider Family Medicine
DX: I10 Essential (primary) hypertension (principal); E55.9 Vitamin D deficiency, unspecified; I1A.0 Resistant hypertension; E66.01 Morbid (severe) obesity due to excess calories; Z68.41 Body mass index [BMI] 40.0-44.9, adult
CPT/HCPCS: 36415; 80053; 82306; 82607; 83735; 85025